=== PATIENT | female | born 1980 | race Caucasian/White ===

== ENCOUNTER 2016-09-25 09:52 | Emergency (ER) | payer MEDICAID ==
[~2016-09-25] VITALS: Ht 157.5 cm; Wt 80.0 kg
[2016-09-25 10:43] VITALS: BP 108/35
[2016-09-25] MEDS ORDERED: IBUPROFEN 600MG TABLET PO ONE (10:45)
== END 2016-09-25 11:14 | disposition home or self-care (01) ==
LOC: ER 10:34
DX: L02.213 Cutaneous abscess of chest wall (principal)
CPT/HCPCS: 99282; Z7610

== ENCOUNTER 2018-01-25 20:31 | Emergency (ER) | payer MEDICAID ==
[~2018-01-25] VITALS: Ht 157.5 cm; Wt 76.0 kg
[2018-01-25] MEDS ORDERED: IBUPROFEN 600MG TABLET PO ONE (22:30)
[2018-01-25 22:32] VITALS: BP 113/67
== END 2018-01-25 23:03 | disposition home or self-care (01) ==
LOC: ER 20:31
DX: S09.8XXA Other specified injuries of head, initial encounter (principal); S20.219A Contusion of unspecified front wall of thorax, initial encounter; R68.84 Jaw pain; R10.13 Epigastric pain; R07.89 Other chest pain; Z98.890 Other specified postprocedural states; Y04.0XXA Assault by unarmed brawl or fight, initial encounter; Y93.89 Activity, other specified; Y92.018 Other place in single-family (private) house as the place of occurrence of the external cause
CPT/HCPCS: 99282

== ENCOUNTER 2019-06-06 14:39 | Emergency (ER) | payer MEDICAID ==
[~2019-06-06] VITALS: Ht 160 cm; Wt 80.0 kg
[2019-06-06] MEDS ORDERED: PREDNISONE 20MG TABLET PO ONE (15:45)
[2019-06-06] MEDS ORDERED: ALBUTEROL (0.083%) 2.5MG/3ML NEB HHN ONE (15:45)
[2019-06-06] MEDS ORDERED: IBUPROFEN 600MG TABLET PO ONE (15:45)
[2019-06-06 17:14] VITALS: BP 130/86
== END 2019-06-06 17:15 | disposition home or self-care (01) ==
LOC: ER 14:39
DX: J18.9 Pneumonia, unspecified organism (principal); R03.0 Elevated blood-pressure reading, without diagnosis of hypertension
CPT/HCPCS: 71045; 81025; 94640; 99283; J7512; J7610; Z7610